=== PATIENT | male | born 1955 | race Caucasian/White ===

== ENCOUNTER 2016-11-02 19:40 | Inpatient (IN) | payer OTHER ==
[~2016-11-02 19:40] MED LIST: ADVAIR HFA 115-28 GM INH; ASCORBIC ACID500 MG PO; AZITHROMYCIN250 MG PO; CEFDINIR300 MG PO; COREG 3.125M3.125 MG PO; COREG 6.25MG6.25 MG PO; DIAZEPAM 5MG TAB5 MG PO; FLOMAX0.4 MG PO; FLONASE ALLER15.8 ML; FOLIC ACID1 MG PO; IMDUR 30MG TABL30 MG PO; LACTINEX1 EACH PO; LEVAQUIN500 MG PO; LIPITOR40 MG PO; MEDROL 4MG DOSEP4 MG PO; NORVASC5 MG PO; OMEPRAZOLE40 MG PO; PERCOCET 10-321 EACH PO; PERCOCET 10/321 EACH PO; PREDNISONE 10MG10 MG PO; PREDNISONE20 MG PO; PRILOSEC40 MG PO; PULMICORT0.5 MG/2 M NEB; ROBITUSSIN DM10 ML PO; SINGULAIR10 MG PO; SPIRIVA18 MCG INH; SYMBICORT INH; THEOPHYLLINE400 MG PO; VENTOLIN (2.5 MG/3 M INH; VENTOLIN HFA8 GM INH; VITAMIN B-1100 MG PO; VITAMIN B-121000 MC1 PO; ZITHROMAX250 MG PO; ZITHROMAX500 MG PO; ZOLOFT50 MG PO; ZYRTEC10 MG PO
[2016-11-02 21:07] LABS: BASOPHIL 0.7 % (0-2); EOSINOPHIL 0 % (0-5); HGB 13.7 g/dl (13.2-18.0); LYMPHOCYTE 21.2 % (15-48); MCHC 31.9 g/dL (32.0-36.0); MCV 94.3 fL (78.0-100.0); MPV 8.8 fL (6.0-9.5); NEUTROPHIL 65.1 % (41-80); PLT 196 K/uL (150-400); RBC 4.56 M/uL (4.70-6.00); RDW 15.2 % (11.5-14.0)
[2016-11-02 21:16] LABS: WBC 8.4 K/uL (4.0-10.5)
[2016-11-02 21:17] LABS: INR 0.96 (0.9-1.2); PROTHROMBIN TIME 12.4 SECONDS (11.7-14.0); PTT 26.6 SECONDS (23.2-31.4)
[2016-11-02 21:25] LABS: CKMB 3.03 ng/mL (0.97-4.94); MYOGLOBIN 42 ng/mL (26-65); TROPONIN T < 0.010 ng/mL
[2016-11-02 21:26] LABS: ALBUMIN 4.1 g/dL (3.4-4.8); BILIRUBIN - TOTAL 0.2 mg/dL (0.1-1.0); CREATININE 0.7 mg/dL (0.7-1.2); GLOBULIN (CALCULATION) 2.7 g/dL (2.2-4.2); MAGNESIUM 1.98 mg/dL (1.40-2.10); POTASSIUM 3.6 mmol/L (3.5-5.1); TOTAL PROTEIN 6.8 g/dL (6.4-8.3)
[2016-11-03 04:34] LABS: HCT 39.9 % (42.0-52.0); MCH 30.5 pg (25.0-31.0); MCHC 32.6 g/dL (32.0-36.0); MCV 93.7 fL (78.0-100.0); MPV 9.1 fL (6.0-9.5); RBC 4.26 M/uL (4.70-6.00); WBC 6.9 K/uL (4.0-10.5)
[2016-11-03 04:54] LABS: CKMB 2.37 ng/mL (0.97-4.94); TROPONIN T < 0.010 ng/mL
[2016-11-03 04:56] LABS: ALBUMIN 3.7 g/dL (3.4-4.8); BILIRUBIN - TOTAL 0.2 mg/dL (0.1-1.0); CREATININE 0.6 mg/dL (0.7-1.2); GLOBULIN (CALCULATION) 2.4 g/dL (2.2-4.2); POTASSIUM 3.9 mmol/L (3.5-5.1); TOTAL PROTEIN 6.1 g/dL (6.4-8.3); URIC ACID 4.2 mg/dL (3.4-7.0)
[2016-11-03 04:58] LABS: LACTIC ACID 1.9 mmol/L (0.5-2.2)
--- NOTE | 2016-11-03 07:22 | NUR ---
0720 5 MG IVP LOPRESSOR GIVEN PER MD ORDER, MED NOT IN [facility] TO CHART
[2016-11-03 11:53] LABS: CKMB 2.33 ng/mL (0.97-4.94); TROPONIN T < 0.010 ng/mL
--- NOTE | 2016-11-03 23:26 | NUR ---
2300- PT STATES HE WAS PRESCRIBED [facility]OTE ER 500MG FROM [place] (VERIFIED MED ON [place] WEBSITE). PATIENT SAID HIS NURSE PRACTITIONER WITH [facility] TODL HIM TO TAKE THE SAME PILLS BUT TO TAKE AN ADDITION 2 PILLS (1000MG) OF THE ER AT NIGHT DUE TO RECENT DEPAKOTE LAB LEVELS. PHARMACY WAS QUESTIONED SINCE ER WAS A ONCE DAILY DOSING AND WE HAVE NONE AVAILABLE TONIGHT IN THE HOSPITAL, IF IT WAS OKAY TO GIVE THE DELAY RELEASE 1000MG IN ADDITION TO WHAT WAS GIVEN EARLIER TODAY. SPOKE WITH PATIENT, SINCE UNSURE ABOUT DEPAKOTE ER VS DR IF IT WAS OKAY TO NOT GIVE TONIGHT'S DOSE AND WILL CLARIFY THE PM DOSE WITH THE HABILITATION ASSISTANT AT [facility]. PT AGREED TO PLAN OF CARE.
[2016-11-04 04:58] LABS: BASOPHIL 0.1 % (0-2); EOSINOPHIL 0 % (0-5); HCT 40.2 % (42.0-52.0); LYMPHOCYTE 9.3 % (15-48); MCH 30.4 pg (25.0-31.0); MCHC 32.3 g/dL (32.0-36.0); MCV 93.9 fL (78.0-100.0); MPV 9.3 fL (6.0-9.5); NEUTROPHIL 86.6 % (41-80); PLT 188 K/uL (150-400); RBC 4.28 M/uL (4.70-6.00); RDW 15.2 % (11.5-14.0); WBC 8.8 K/uL (4.0-10.5)
[2016-11-04 05:17] LABS: CREATININE 0.7 mg/dL (0.7-1.2); MAGNESIUM 1.91 mg/dL (1.40-2.10); POTASSIUM 4.1 mmol/L (3.5-5.1)
[2016-11-05] MEDS ORDERED: DEPAKOTE ER500 MG PO (10:28)
[2016-11-05] MEDS ORDERED: SPIRIVA18 MCG INH (12:42)
[2016-11-05] MEDS ORDERED: DIGITEK125 MCG PO (12:45)
[2016-11-05] MEDS ORDERED: ELIQUIS5 MG PO (12:45)
[2016-11-05] MEDS ORDERED: AMIODARONE HCL200 M1 PO (12:45)
[2016-11-05] MEDS ORDERED: LOPRESSOR50 MG PO (16:08)
== END 2016-11-05 13:12 | disposition home or self-care (01) | DRG 872 ==
LOC: FER 19:40 → FTCU 11-03 01:40
PROVIDERS: Emergency Medicine; ADMIT Internal Medicine
DX: A41.9 Sepsis, unspecified organism (principal); J96.11 Chronic respiratory failure with hypoxia; Z99.81 Dependence on supplemental oxygen; J44.0 Chronic obstructive pulmonary disease with (acute) lower respiratory infection; J44.1 Chronic obstructive pulmonary disease with (acute) exacerbation; J96.12 Chronic respiratory failure with hypercapnia; I48.91 Unspecified atrial fibrillation; J20.9 Acute bronchitis, unspecified; M25.571 Pain in right ankle and joints of right foot; M10.9 Gout, unspecified; M54.2 Cervicalgia; G89.29 Other chronic pain; F11.21 Opioid dependence, in remission; F10.21 Alcohol dependence, in remission; F17.210 Nicotine dependence, cigarettes, uncomplicated; K21.9 Gastro-esophageal reflux disease without esophagitis; F41.9 Anxiety disorder, unspecified; F43.10 Post-traumatic stress disorder, unspecified; N40.0 Benign prostatic hyperplasia without lower urinary tract symptoms; Z83.6 Family history of other diseases of the respiratory system; Z82.49 Family history of ischemic heart disease and other diseases of the circulatory system; Z82.61 Family history of arthritis
CPT/HCPCS: 36415; 36600; 71020; 71275; 73630; 80048; 80053; 82550; 82553; 82803; 83605; 83735; 83874; 83880; 84484; 84550; 85025; 85610; 85730; 87040; 93005; 94010; 94640; 94760; C9113; G0378; J0282; J0456; J1100; J1160; J1644; J1885; J2270; J2930; Q9967

== ENCOUNTER 2016-11-21 06:46 | Inpatient (IN) | payer OTHER ==
[~2016-11-21 06:46] MED LIST changes: +AMIODARONE HCL200 M1 PO; +DEPAKOTE ER500 MG PO; +DIGITEK125 MCG PO; +ELIQUIS5 MG PO; +LOPRESSOR50 MG PO
[2016-11-21 07:33] LABS: BASOPHIL 0.7 % (0-2); EOSINOPHIL 8.2 % (0-5); HCT 42.7 % (42.0-52.0); HGB 13.3 g/dl (13.2-18.0); LYMPHOCYTE 15.3 % (15-48); MCH 30.9 pg (25.0-31.0); MCHC 31.1 g/dL (32.0-36.0); MCV 99.1 fL (78.0-100.0); MPV 9.6 fL (6.0-9.5); NEUTROPHIL 68.8 % (41-80); PLT 233 K/uL (150-400); RBC 4.31 M/uL (4.70-6.00); RDW 16.6 % (11.5-14.0); WBC 10.9 K/uL (4.0-10.5)
[2016-11-21 07:44] LABS: PROTHROMBIN TIME 12.8 SECONDS (11.7-14.0); PTT 24.4 SECONDS (23.2-31.4)
[2016-11-21 07:55] LABS: ALBUMIN 3.9 g/dL (3.4-4.8); BILIRUBIN - TOTAL 0.3 mg/dL (0.1-1.0); CREATININE 0.9 mg/dL (0.7-1.2); GLOBULIN (CALCULATION) 2.6 g/dL (2.2-4.2); POTASSIUM 4.9 mmol/L (3.5-5.1); TOTAL PROTEIN 6.5 g/dL (6.4-8.3)
[2016-11-21 08:26] LABS: CKMB 3.22 ng/mL (0.97-4.94); TROPONIN T < 0.010 ng/mL
[2016-11-22 05:52] LABS: HCT 38.9 % (42.0-52.0); HGB 12.2 g/dl (13.2-18.0); MCH 30.7 pg (25.0-31.0); MCHC 31.4 g/dL (32.0-36.0); MCV 97.7 fL (78.0-100.0); MPV 9.3 fL (6.0-9.5); RBC 3.98 M/uL (4.70-6.00); RDW 15.3 % (11.5-14.0); WBC 8.3 K/uL (4.0-10.5)
[2016-11-22 06:15] LABS: CREATININE 0.9 mg/dL (0.7-1.2); POTASSIUM 5.1 mmol/L (3.5-5.1)
[2016-11-23 05:04] LABS: HCT 39.2 % (42.0-52.0); HGB 12.1 g/dl (13.2-18.0); MCH 30.5 pg (25.0-31.0); MCHC 30.9 g/dL (32.0-36.0); MCV 98.7 fL (78.0-100.0); MPV 9.5 fL (6.0-9.5); RBC 3.97 M/uL (4.70-6.00); RDW 15.1 % (11.5-14.0); WBC 11.3 K/uL (4.0-10.5)
[2016-11-23 05:21] LABS: CREATININE 1.1 mg/dL (0.7-1.2); POTASSIUM 5.4 mmol/L (3.5-5.1)
[2016-11-24 05:33] LABS: HCT 40.8 % (42.0-52.0); HGB 12.6 g/dl (13.2-18.0); MCH 30.6 pg (25.0-31.0); MCHC 30.9 g/dL (32.0-36.0); MPV 9.5 fL (6.0-9.5); RBC 4.12 M/uL (4.70-6.00); RDW 15.4 % (11.5-14.0); WBC 9.6 K/uL (4.0-10.5)
[2016-11-24 05:53] LABS: CREATININE 0.8 mg/dL (0.7-1.2); POTASSIUM 4.1 mmol/L (3.5-5.1)
[2016-11-24] MEDS ORDERED: PREDNISONE 20MG20 MG PO (13:49)
[2016-11-24] MEDS ORDERED: PREDNISONE 10MG10 MG PO (13:50)
[2016-11-24] MEDS ORDERED: AZITHROMYCIN250 MG PO (13:50)
== END 2016-11-24 12:37 | disposition home or self-care (01) | DRG 189 ==
LOC: FER 06:46 → FMS 09:10
PROVIDERS: Emergency Medicine; ADMIT Internal Medicine
DX: J96.21 Acute and chronic respiratory failure with hypoxia (principal); J44.0 Chronic obstructive pulmonary disease with (acute) lower respiratory infection; J44.1 Chronic obstructive pulmonary disease with (acute) exacerbation; F11.20 Opioid dependence, uncomplicated; I10 Essential (primary) hypertension; G89.29 Other chronic pain; M54.2 Cervicalgia; I48.91 Unspecified atrial fibrillation; E78.5 Hyperlipidemia, unspecified; F43.10 Post-traumatic stress disorder, unspecified; K21.9 Gastro-esophageal reflux disease without esophagitis; F41.9 Anxiety disorder, unspecified; F17.200 Nicotine dependence, unspecified, uncomplicated; J20.9 Acute bronchitis, unspecified; Z65.8 Other specified problems related to psychosocial circumstances; N40.0 Benign prostatic hyperplasia without lower urinary tract symptoms
CPT/HCPCS: 36415; 36600; 71010; 73110; 80048; 80053; 82550; 82553; 82803; 84484; 85025; 85610; 85730; 93005; 94640; 94667; 94760; J0456; J1170; J2060; J2405; J2930; J3360

== ENCOUNTER 2016-11-26 01:23 | Inpatient (IN) | payer OTHER ==
[~2016-11-26 01:23] MED LIST changes: +PREDNISONE 20MG20 MG PO
[2016-11-26 02:18] LABS: BASOPHIL 0.1 % (0-2); EOSINOPHIL 2.8 % (0-5); HCT 43.9 % (42.0-52.0); HGB 14.1 g/dl (13.2-18.0); LYMPHOCYTE 19.7 % (15-48); MCH 30.7 pg (25.0-31.0); MCHC 32.1 g/dL (32.0-36.0); MCV 95.6 fL (78.0-100.0); MONOCYTE 9.4 % (0-12); PLT 188 K/uL (150-400); RBC 4.59 M/uL (4.70-6.00); RDW 15.6 % (11.5-14.0); WBC 7.1 K/uL (4.0-10.5)
[2016-11-26 02:38] LABS: CKMB 1.66 ng/mL (0.97-4.94); TROPONIN T < 0.010 ng/mL
[2016-11-26 02:40] LABS: ALBUMIN 3.8 g/dL (3.4-4.8); BILIRUBIN - TOTAL 0.2 mg/dL (0.1-1.0); GLOBULIN (CALCULATION) 2.1 g/dL (2.2-4.2); POTASSIUM 3.7 mmol/L (3.5-5.1); TOTAL PROTEIN 5.9 g/dL (6.4-8.3)
[2016-11-26 08:53] LABS: CKMB 1.55 ng/mL (0.97-4.94); TROPONIN T < 0.010 ng/mL
[2016-11-26 15:43] LABS: CKMB 1.44 ng/mL (0.97-4.94); TROPONIN T < 0.010 ng/mL
[2016-11-27 04:53] LABS: HCT 41.8 % (42.0-52.0); HGB 13.8 g/dl (13.2-18.0); MCH 30.6 pg (25.0-31.0); MCV 92.7 fL (78.0-100.0); MPV 9.4 fL (6.0-9.5); RBC 4.51 M/uL (4.70-6.00); RDW 14.9 % (11.5-14.0)
[2016-11-27 04:58] LABS: CREATININE 0.8 mg/dL (0.7-1.2); POTASSIUM 4.2 mmol/L (3.5-5.1)
[2016-11-27 05:13] LABS: WBC 12.8 K/uL (4.0-10.5)
[2016-11-27] MEDS ORDERED: PREDNISONE 20MG20 MG PO (09:35)
[2016-11-27] MEDS ORDERED: ZITHROMAX500 MG PO (09:35)
[2016-11-27] MEDS ORDERED: VALIUM10 MG PO (09:36)
[2016-11-27] MEDS ORDERED: AUGMENTIN 875-1 EACH PO (09:37)
== END 2016-11-27 10:49 | disposition home or self-care (01) | DRG 189 ==
LOC: FER 01:23 → FTCU 04:45
PROVIDERS: Emergency Medicine; Internal Medicine; ADMIT Internal Medicine Nephrology
DX: J96.21 Acute and chronic respiratory failure with hypoxia (principal); J44.0 Chronic obstructive pulmonary disease with (acute) lower respiratory infection; J44.1 Chronic obstructive pulmonary disease with (acute) exacerbation; F11.20 Opioid dependence, uncomplicated; F13.20 Sedative, hypnotic or anxiolytic dependence, uncomplicated; I48.2 Chronic atrial fibrillation; G89.29 Other chronic pain; M54.9 Dorsalgia, unspecified; J20.9 Acute bronchitis, unspecified; N40.0 Benign prostatic hyperplasia without lower urinary tract symptoms; F17.200 Nicotine dependence, unspecified, uncomplicated; K21.9 Gastro-esophageal reflux disease without esophagitis; F43.10 Post-traumatic stress disorder, unspecified; I10 Essential (primary) hypertension; E78.5 Hyperlipidemia, unspecified; F41.9 Anxiety disorder, unspecified; I48.0 Paroxysmal atrial fibrillation
CPT/HCPCS: 36415; 71010; 80048; 80053; 80061; 82550; 82553; 84484; 85025; 93005; 94640; 94760; J0456; J2270; J2930

== ENCOUNTER 2016-12-05 16:48 | Emergency (ER) | payer OTHER ==
[~2016-12-05 16:48] MED LIST changes: +AUGMENTIN 875-1 EACH PO; +VALIUM10 MG PO
[2016-12-05 18:38] LABS: BASOPHIL 0.5 % (0-2); EOSINOPHIL 3.7 % (0-5); HCT 43.7 % (42.0-52.0); HGB 14.1 g/dl (13.2-18.0); LYMPHOCYTE 19.9 % (15-48); MCH 30.6 pg (25.0-31.0); MCHC 32.3 g/dL (32.0-36.0); MCV 94.8 fL (78.0-100.0); MONOCYTE 6.4 % (0-12); MPV 9.4 fL (6.0-9.5); NEUTROPHIL 69.5 % (41-80); PLT 189 K/uL (150-400); RBC 4.61 M/uL (4.70-6.00); RDW 15.5 % (11.5-14.0); WBC 12.7 K/uL (4.0-10.5)
[2016-12-05 19:04] LABS: ALBUMIN 4.2 g/dL (3.4-4.8); BILIRUBIN - TOTAL 0.2 mg/dL (0.1-1.0); CREATININE 1.1 mg/dL (0.7-1.2); GLOBULIN (CALCULATION) 2.5 g/dL (2.2-4.2); POTASSIUM 4.3 mmol/L (3.5-5.1); TOTAL PROTEIN 6.7 g/dL (6.4-8.3)
== END 2016-12-05 20:17 | disposition home or self-care (01) ==
LOC: FER 16:48
PROVIDERS: Nurse Practitioner
DX: J44.1 Chronic obstructive pulmonary disease with (acute) exacerbation (principal); I11.9 Hypertensive heart disease without heart failure; Z79.51 Long term (current) use of inhaled steroids
CPT/HCPCS: 36415; 36600; 71020; 80053; 82803; 85025; 93005; 94640; J1170; J2060; J2930

== ENCOUNTER 2016-12-08 18:43 | Emergency (ER) | payer OTHER ==
[2016-12-08 20:15] LABS: HCT 41.8 % (42.0-52.0); HGB 13.3 g/dl (13.2-18.0); MCH 30.4 pg (25.0-31.0); MCHC 31.8 g/dL (32.0-36.0); MCV 95.4 fL (78.0-100.0); RBC 4.38 M/uL (4.70-6.00); WBC 7.2 K/uL (4.0-10.5)
[2016-12-08 20:16] LABS: PLT 130 K/uL (150-400)
[2016-12-08 20:32] LABS: POTASSIUM 3.7 mmol/L (3.5-5.1)
== END 2016-12-08 21:28 | disposition home or self-care (01) ==
LOC: FER 18:43
PROVIDERS: Emergency Medicine
DX: J44.1 Chronic obstructive pulmonary disease with (acute) exacerbation (principal); I10 Essential (primary) hypertension; I48.91 Unspecified atrial fibrillation; K21.9 Gastro-esophageal reflux disease without esophagitis; F17.210 Nicotine dependence, cigarettes, uncomplicated; Z99.81 Dependence on supplemental oxygen; Z79.51 Long term (current) use of inhaled steroids; Z79.01 Long term (current) use of anticoagulants; Z79.899 Other long term (current) drug therapy
CPT/HCPCS: 36415; 36600; 80048; 82803; 94640; 94760; J1885; J2060; J2800; J2930

== ENCOUNTER 2016-12-12 18:13 | Emergency (ER) | payer OTHER | END 2016-12-12 21:37 | disposition home or self-care (01) | LOC: FER 18:13 | DX: J44.1 Chronic obstructive pulmonary disease with (acute) exacerbation (principal); I10 Essential (primary) hypertension; I48.91 Unspecified atrial fibrillation; K21.9 Gastro-esophageal reflux disease without esophagitis; F41.9 Anxiety disorder, unspecified; G89.29 Other chronic pain; F17.200 Nicotine dependence, unspecified, uncomplicated; Z79.899 Other long term (current) drug therapy; Z79.51 Long term (current) use of inhaled steroids; Z99.81 Dependence on supplemental oxygen | CPT/HCPCS: 71020; 93005; 94640; 94664; J2930 ==

== ENCOUNTER 2017-01-27 06:09 | Emergency (ER) | payer OTHER ==
[2017-01-27 07:21] LABS: BASOPHIL 0.9 % (0-2); EOSINOPHIL 4.9 % (0-5); HCT 41.5 % (42.0-52.0); HGB 13.3 g/dl (13.2-18.0); LYMPHOCYTE 19.2 % (15-48); MCH 30.6 pg (25.0-31.0); MCV 95.6 fL (78.0-100.0); MONOCYTE 8.7 % (0-12); MPV 9.4 fL (6.0-9.5); NEUTROPHIL 66.3 % (41-80); PLT 225 K/uL (150-400); RBC 4.34 M/uL (4.70-6.00); RDW 16.5 % (11.5-14.0)
[2017-01-27 07:40] LABS: CREATININE 0.9 mg/dL (0.7-1.2); POTASSIUM 4.2 mmol/L (3.5-5.1)
== END 2017-01-27 08:05 | disposition home or self-care (01) ==
LOC: FER 06:09
PROVIDERS: Emergency Medicine
DX: J44.1 Chronic obstructive pulmonary disease with (acute) exacerbation (principal); F41.9 Anxiety disorder, unspecified; I11.9 Hypertensive heart disease without heart failure; I48.91 Unspecified atrial fibrillation; F17.200 Nicotine dependence, unspecified, uncomplicated; Z79.899 Other long term (current) drug therapy; Z79.51 Long term (current) use of inhaled steroids
CPT/HCPCS: 36415; 36600; 71010; 80048; 82803; 85025; 94640; J2930

== ENCOUNTER 2017-02-10 12:34 | Emergency (ER) | payer OTHER ==
[2017-02-10 13:07] LABS: BASOPHIL 0.3 % (0-2); EOSINOPHIL 2.8 % (0-5); HCT 41.4 % (42.0-52.0); HGB 13.2 g/dl (13.2-18.0); LYMPHOCYTE 12.6 % (15-48); MCH 30.3 pg (25.0-31.0); MCHC 31.9 g/dL (32.0-36.0); MONOCYTE 7.7 % (0-12); NEUTROPHIL 76.6 % (41-80); PLT 236 K/uL (150-400); RBC 4.36 M/uL (4.70-6.00); RDW 16.1 % (11.5-14.0); WBC 7.9 K/uL (4.0-10.5)
[2017-02-10 13:20] LABS: LACTIC ACID 1.1 mmol/L (0.5-2.2)
[2017-02-10 13:23] LABS: BILIRUBIN - TOTAL 0.4 mg/dL (0.1-1.0); CREATININE 0.9 mg/dL (0.7-1.2); GLOBULIN (CALCULATION) 2.6 g/dL (2.2-4.2); POTASSIUM 3.6 mmol/L (3.5-5.1); TOTAL PROTEIN 6.6 g/dL (6.4-8.3)
== END 2017-02-10 17:02 | disposition home or self-care (01) ==
LOC: FER 12:34
PROVIDERS: Internal Medicine
DX: J44.1 Chronic obstructive pulmonary disease with (acute) exacerbation (principal); M54.5 Low back pain; G89.29 Other chronic pain; Z79.899 Other long term (current) drug therapy; Z79.51 Long term (current) use of inhaled steroids
CPT/HCPCS: 36415; 71010; 71275; 80053; 83605; 84484; 85025; 85379; 93005; 94640; J1170; J2060; J2930; Q9967

== ENCOUNTER 2017-02-11 15:25 | Emergency (ER) | payer OTHER ==
[2017-02-11 16:39] LABS: BASOPHIL 0.1 % (0-2); EOSINOPHIL 0 % (0-5); HCT 37.8 % (42.0-52.0); HGB 12.1 g/dl (13.2-18.0); LYMPHOCYTE 4.9 % (15-48); MCV 93.8 fL (78.0-100.0); MONOCYTE 4.8 % (0-12); MPV 9.4 fL (6.0-9.5); NEUTROPHIL 90.2 % (41-80); PLT 261 K/uL (150-400); RBC 4.03 M/uL (4.70-6.00); RDW 15.8 % (11.5-14.0)
[2017-02-11 16:40] LABS: WBC 14.5 K/uL (4.0-10.5)
[2017-02-11 16:48] LABS: CREATININE 0.8 mg/dL (0.7-1.2); POTASSIUM 3.5 mmol/L (3.5-5.1)
== END 2017-02-11 18:49 | disposition home or self-care (01) ==
LOC: FER 15:25
PROVIDERS: Internal Medicine
DX: J18.9 Pneumonia, unspecified organism (principal); J44.9 Chronic obstructive pulmonary disease, unspecified; J90 Pleural effusion, not elsewhere classified; I48.91 Unspecified atrial fibrillation; G89.29 Other chronic pain; I10 Essential (primary) hypertension; F17.210 Nicotine dependence, cigarettes, uncomplicated; Z79.51 Long term (current) use of inhaled steroids; Z79.01 Long term (current) use of anticoagulants; Z79.899 Other long term (current) drug therapy
CPT/HCPCS: 36415; 36600; 71010; 80048; 82803; 83880; 84484; 85025; 93005; 94640; J1170; J1940; J2060

== ENCOUNTER 2017-02-21 20:17 | Emergency (ER) | payer OTHER | END 2017-02-21 21:45 | disposition home or self-care (01) | LOC: FER 20:17 | DX: J44.1 Chronic obstructive pulmonary disease with (acute) exacerbation (principal); I48.91 Unspecified atrial fibrillation | CPT/HCPCS: 94640; 94760; J1100 ==

== ENCOUNTER 2017-02-24 20:07 | Emergency (ER) | payer OTHER | END 2017-02-24 21:52 | disposition left against medical advice (07) | LOC: FER 20:07 | DX: R06.02 Shortness of breath (principal); J44.9 Chronic obstructive pulmonary disease, unspecified; I10 Essential (primary) hypertension; J98.11 Atelectasis | CPT/HCPCS: 36600; 71010; 82803; 93005; 94640; J2930 ==

== ENCOUNTER 2017-02-28 15:48 | Emergency (ER) | payer OTHER ==
[2017-02-28 16:56] LABS: BASOPHIL 0.1 % (0-2); EOSINOPHIL 0 % (0-5); HCT 42.8 % (42.0-52.0); HGB 13.2 g/dl (13.2-18.0); LYMPHOCYTE 9.2 % (15-48); MCH 29.2 pg (25.0-31.0); MCHC 30.8 g/dL (32.0-36.0); MCV 94.7 fL (78.0-100.0); MONOCYTE 3.6 % (0-12); MPV 9.4 fL (6.0-9.5); NEUTROPHIL 87.1 % (41-80); PLT 292 K/uL (150-400); RBC 4.52 M/uL (4.70-6.00); RDW 14.8 % (11.5-14.0); WBC 12.1 K/uL (4.0-10.5)
[2017-02-28 17:07] LABS: BILIRUBIN NEGATIVE (NEGATIVE); BLOOD NEGATIVE Ery/uL (NEGATIVE); CLARITY CLEAR (CLEAR); COLOR YELLOW (YELLOW); GLUCOSE (U) NORMAL (NORMAL); KETONE (U) NEGATIVE (NEGATIVE); LEUKOCYTES NEGATIVE Leu/uL (NEGATIVE); NITRITE NEGATIVE (NEGATIVE); PROTEIN NEGATIVE (NEGATIVE); SPECIFIC GRAVITY 1.025 (1.001-1.030); UROBILINOGEN 0.2 mg/dL (0.2-1.0)
[2017-02-28 17:11] LABS: BILIRUBIN - TOTAL 0.3 mg/dL (0.1-1.0); CREATININE 0.8 mg/dL (0.7-1.2); GLOBULIN (CALCULATION) 2.4 g/dL (2.2-4.2); POTASSIUM 3.9 mmol/L (3.5-5.1); TOTAL PROTEIN 6.4 g/dL (6.4-8.3)
== END 2017-02-28 19:16 | disposition home or self-care (01) ==
LOC: FER 15:48
PROVIDERS: Emergency Medicine
DX: J44.1 Chronic obstructive pulmonary disease with (acute) exacerbation (principal); I11.0 Hypertensive heart disease with heart failure; I50.9 Heart failure, unspecified; I48.91 Unspecified atrial fibrillation; R22.0 Localized swelling, mass and lump, head; F17.210 Nicotine dependence, cigarettes, uncomplicated; Z79.82 Long term (current) use of aspirin; Z79.899 Other long term (current) drug therapy
CPT/HCPCS: 36415; 36600; 71010; 80053; 81003; 82803; 83880; 84484; 85025; 93005; J1940